=== PATIENT | female | born 1960 | race Two or more races ===

== ENCOUNTER 2021-10-21 05:00 | Day surgery (SDC) | payer OTHER ==
[~2021-10-21] VITALS: Ht 149.9 cm; Wt 57.2 kg
[~2021-10-21 05:00] MED LIST: BACLOFEN10 MG PO; PEPCID PO; PRILOSEC OTC20 MG PO; ULTRAM50 MG PO; ZOLPID PO
== END 2021-10-21 12:25 | disposition home or self-care (01) ==
LOC: CIR.AMB 05:00
PROVIDERS: ATTEND Specialist
DX: K80.10 Calculus of gallbladder with chronic cholecystitis without obstruction (principal); Z20.822 Contact with and (suspected) exposure to COVID-19; Z88.2 Allergy status to sulfonamides; Z88.8 Allergy status to other drugs, medicaments and biological substances; J45.909 Unspecified asthma, uncomplicated; Z86.16 Personal history of COVID-19